=== PATIENT | female | born 1970 | race Caucasian/White ===

== ENCOUNTER 2018-04-20 19:22 | Emergency (ER) | payer MEDICAID ==
[~2018-04-20] VITALS: Ht 157.5 cm; Wt 71.9 kg
[~2018-04-20 19:22] MED LIST: PANT-47 PO
[2018-04-20 21:07] VITALS: BP 161/90
== END 2018-04-20 22:17 | disposition home or self-care (01) ==
LOC: ER 19:23
DX: R19.5 Other fecal abnormalities (principal); G89.29 Other chronic pain; R10.9 Unspecified abdominal pain; G40.909 Epilepsy, unspecified, not intractable, without status epilepticus; I10 Essential (primary) hypertension; Z88.0 Allergy status to penicillin; Z79.899 Other long term (current) drug therapy
CPT/HCPCS: 93005; 99283

== ENCOUNTER 2020-03-06 17:35 | Emergency (ER) | payer MEDICAID ==
[~2020-03-06] VITALS: Ht 157.5 cm; Wt 68.2 kg
[2020-03-06 19:56] VITALS: BP 172/104
== END 2020-03-06 20:02 | disposition home or self-care (01) ==
LOC: ER 17:35
DX: S40.012A Contusion of left shoulder, initial encounter (principal); M75.32 Calcific tendinitis of left shoulder; F17.200 Nicotine dependence, unspecified, uncomplicated; F10.10 Alcohol abuse, uncomplicated; Z60.2 Problems related to living alone; Z88.0 Allergy status to penicillin; Z79.899 Other long term (current) drug therapy; W01.0XXA Fall on same level from slipping, tripping and stumbling without subsequent striking against object, initial encounter; Y93.89 Activity, other specified; Y92.89 Other specified places as the place of occurrence of the external cause; Y99.8 Other external cause status
CPT/HCPCS: 73030; 99284